=== PATIENT | female | born 1990 | race Caucasian/White ===

== ENCOUNTER 2021-07-06 17:03 | Inpatient (IN) | payer BC, SELFPAY ==
[2021-07-06] VITALS (18 sets, daily range): BP systolic 86–129; BP diastolic 49–89; PULSE 66–103; BMI 25.7
--- NOTE | 2021-07-06 17:25 | LDADM ---
This patient, Kayla Lizarraga, was admitted to Labor/Delivery/Recovery 108 on 07/06/21 at 17:03. Plans for labor, pain management and were discussed with patient. Patient/family oriented to hospital policies and general routines including ID bracelet, bed and alarms, visiting hours, pain management, procedures, bathroom and other care routines, personal items, smoking policy, room service/diet and guest tray routines, security routines, and visiting hours. Patient/Family are encouraged to report perceived risks to care and to ask questions if they do not understand what they are told or what they should do. See OBIX for further documentation.
[2021-07-06] MEDS: DINOPROSTONE 10 MG VAG INSERT VAGINAL (17:43)
[2021-07-06 18:05] LABS: Basophils Percent Auto 0.4 % (0.2-1.2); Eosinophils Percent Auto 0.4 % (0-4.4); Hematocrit 39.4 % (37.0-47.0); Hemoglobin 13.4 g/dL (12.0-15.0); Immature Granulocyte Absolute 0.03 K/mm3 (0.00-0.031); Immature Granulocyte Percent A 0.4 % (0-0.5); Lymphocytes Absolute Auto 1.55 K/mm3 (0.9-3.2); Lymphocytes Percent Auto 18.3 % (18.3-44.2); Mean Corpuscular Hemoglobin 29.5 pg (26-34); Mean Corpuscular Volume 86.8 fl (80-100); Mean Platelet Volume 12.3 fl (7.4-10.4); Monocytes Absolute Auto 0.7 K/mm3 (0.1-0.6); Monocytes Percent Auto 8.2 % (2.6-8.5); Neutrophils Absolute Auto 6.1 K/mm3 (1.3-6.7); Neutrophils Percent Auto 72.3 % (45.5-73.1); Platelet Count Result 158 k/mm3 (150-375); Red Blood Count 4.54 M/mm3 (4.2-5.4); Red Cell Distribution Width 13.2 % (11.5-14.5); White Blood Count 8.5 K/mm3 (4.5-10.0)
--- NOTE | 2021-07-06 18:43 | P.PNAN_ITS ---
Anes - Eval Pre Procedure Procedure: labor epidural Date/Time: 07/06/21 18:43 Surgeon: marilyn Pre Op Diagnosis: IOL Patient Data Age: 30 Gender: F Height: 1.6 m Weight: 66 kg Last Vital Signs Pulse 73 07/06/21 18:31 BP 120/81 07/06/21 18:31 Allergies Allergy/AdvReac Type Severity Reaction Status Date / Time Sulfa (Sulfonamide Allergy Hives Verified 07/06/21 17:33 Antibiotics) Home Medications Medication Instructions Recorded Confirmed Type PNV cmb#95-ferrous fumarate-FA 1 tablet PO DAILY 06/08/21 07/06/21 History [] Laboratory Tests 07/06/21 07/06/21 17:38 17:38 WBC 8.5 K/mm3 K/mm3 (4.5-10.0) RBC 4.54 M/mm3 M/mm3 (4.2-5.4) Hgb 13.4 g/dL g/dL (12.0-15.0) Hct 39.4 % % (37.0-47.0) MCV 86.8 fl fl (80-100) MCH 29.5 pg pg (26-34) MCHC 34.0 g/dl g/dl (32-36) RDW 13.2 % % (11.5-14.5) Plt Count 158 k/mm3 k/mm3 (150-375) MPV 12.3 fl H fl (7.4-10.4) Immature Gran % (Auto) 0.4 % % (0-0.5) Neut % (Auto) 72.3 % % (45.5-73.1) Lymph % (Auto) 18.3 % % (18.3-44.2) [place] % (Auto) 8.2 % % (2.6-8.5) Eos % (Auto) 0.4 % % (0-4.4) Baso % (Auto) 0.4 % % (0.2-1.2) Lymph # (Auto) 1.55 K/mm3 K/mm3 (0.9-3.2) [place] # (Auto) 0.7 K/mm3 H K/mm3 (0.1-0.6) Eos # (Auto) 0.0 K/mm3 K/mm3 (0-0.3) Baso # (Auto) 0.0 K/mm3 K/mm3 (0.0-0.1) Abs Immat Gran (auto) 0.03 K/mm3 K/mm3 (0.00-0.031) Absolute Neuts (auto) 6.1 K/mm3 K/mm3 (1.3-6.7) Absolute Nucleated RBC 0.0 K/mm3 K/mm3 (0.0-0.012) Nucleated RBC % 0.0 % % (0.0-0.2) RPR Pending Patient hx anesthesia problems: none Family hx anesthesia problems: none Results Review: All pre-operative results and documents have been reviewed as part of the pre-operative evaluation. [facility] Family History Family History (Updated 06/08/21 @ 15:42 by Lilibeth Agee RN) Father Hypertension Father Diabetes mellitus Mother High cholesterol Social History Social History Smoking status: Never smoker Substance use: never Spiritual care concerns: No Exam Day of Procedure 07/06/21 18:43
[2021-07-07] VITALS (189 sets, daily range): BP systolic 76–171; BP diastolic 39–141; PULSE 57–157; RESP 16; TEMP 35.8–36.9; O2SAT 97–100
[2021-07-07] MEDS: fentaNYL CITRATE INJ (*CRX) 100 MCG/2 ML VIAL 50 MCG IV PUSH ×2 (02:09→03:45)
[2021-07-07] MEDS: LACTATED RINGERS 1,000 ML 999 ML IV CONT ×3 (05:23→14:38)
[2021-07-07] MEDS: PHENYLEPHRINE 1,000 MCG/10 ML SYRINGE 100 MCG IV PUSH ×2 (05:52→05:59)
--- NOTE | 2021-07-07 08:39 | WPDOBADMIT ---
Obstetrics - Admit Note Admission Note: record reviewed. Additions to the history and/or subsequent changes in the physical findings follow. 30 y/o G1 at 40 2/7 weeks here for induction of labor. GBS neg. Cervidil overnight, has been withdrawn. Now comfortable with epidural. AVSS NST reactive TOCO: irregular contractions ABD soft, nontender, gravid, vertex EXT nontender Cervix 4/50/-2. AROM with clear fluid. IUPC placed. A: IUP at term, desiring induction of labor. P: Oxytocin. Anticipate .
[2021-07-07] MEDS: OXYTOCIN 30 UNITS/NS 500 ML 30 UNITS/500 ML BAG 125 UNITS IV CONT (12:47)
--- NOTE | 2021-07-07 13:00 | PM.OBPNLAB ---
Pain Control Date/time seen: 07/07/21 13:00 Comments: Comfortable with epidural. AVSS NST reactive TOCO: contractions every 3-4 min Cervix 7-8/90/0 Continue labor.
[2021-07-07 13:51] LABS: Rapid Plasma Reagin Non-Reactive (NonReactive)
--- NOTE | 2021-07-07 15:37 | PM.OBPRVD ---
OB - Delivery Note Procedure Delivery date: 07/07/21 Procedure: Induction of labor with Induction method: Per Cervidil Protocol Delivery augmentation: Rupture of Membranes and Pitocin Delivery monitor: External FHT, External Uterine and Internal Uterine Route of delivery: Episiotomy description: Midline Delivery repair: vicryl (3-0) Specimen: Yes (cord blood) Quantitative Blood Loss (ml): 220 Anesthesia type: Epidural Disposition: PACU Complications: None Narrative: 30 y/o G1 at 40 2/7 weeks gestation who presented to the hospital for induction of labor. Cervidil was placed overnight, then withdrawn the next morning. Oxytocin was administered intravenously. Amniotomy was performed with return of clear fluid. She received an epidural for pain control. Her labor progressed and her cervix dilated completely. She pushed with good effort. A midline episiotomy was made and the infant's head delivered to the perineum. A loose nuchal cord was splinted and the body delivered. The nose and mouth were bulb suctioned. After a delay, the cord was clamped and cut. The was handed off the field. Cord blood was collected. The placenta delivered spontaneously and was grossly normal in appearance. The usual 3 vessel cord was noted. The MLE was without extension. This was reapproximated using 3 0 Vicryl in the usual layered fashion. Excellent hemostasis resulted as did excellent reapproximation of the normal anatomy. Needle and instrument counts were correct. The patient was taken to recovery room in stable condition. The infant went to the nursery in stable condition. I was present and scrubbed for the entire delivery. Baby Date of : 07/07/21 Time of : 15:17 Weeks of gestation at delivery: 40 Infant gender: Female Weight (pounds): 7 Weight (ounces): 4 presentation: vertex position: Right Occiput Anterior Placenta delivery description: Spontaneous and Normal Configuration Cord Vessel Description: 3 Vessels, Nuchal Cord and Delayed Cord Clamping score one minute: 5 score five minutes: 8
--- NOTE | 2021-07-07 15:43 | PM.OBDSVD ---
DS: Admitting Diagnosis Discharge Date 07/09/21 Admitting Diagnosis IUP at 40 weeks OB - DS: Summary OB Procedures : None OB Procedures Intrapartum: Spontaneous Vag Delivery OB Procedures: : None Time Spent with Patient Time attestation: Total time spent providing and/or coordinating discharge services: DS: Data Data Completed and Pending Labs on day of discharge: Labs from last 24 hours 07/06/21 07/06/21 07/06/21 17:38 17:38 17:38 WBC 8.5 RBC 4.54 Hgb 13.4 Hct 39.4 MCV 86.8 MCH 29.5 MCHC 34.0 RDW 13.2 Plt Count 158 MPV 12.3 H Immature Gran % (Auto) 0.4 Neut % (Auto) 72.3 Lymph % (Auto) 18.3 [place] % (Auto) 8.2 Eos % (Auto) 0.4 Baso % (Auto) 0.4 Lymph # (Auto) 1.55 [place] # (Auto) 0.7 H Eos # (Auto) 0.0 Baso # (Auto) 0.0 Abs Immat Gran (auto) 0.03 Absolute Neuts (auto) 6.1 Absolute Nucleated RBC 0.0 Nucleated RBC % 0.0 RPR Non-reactive Blood Type A Positive Antibody Screen Negative Discharge Plan Discharge Attending physician on discharge: Kelvin Velásquez Discharging Clinician: Kelvin Velásquez Patient Disposition: Home, Self-Care Activity: pelvic rest Diet: regular Discharge Instructions: Call or return if temperature above 100.4? F, increased abdominal pain, increased vaginal bleeding or any new problems. Stand Alone Forms: General Discharge Information Follow-up/Referrals: Kelvin Velásquez MD [Physician] - 6 Weeks Discharge Medications: New ibuprofen 600 mg tablet 600 mg PO Q6H PRN (Reason: cramps) Qty: 30 0RF Continued PNV cmb#95-ferrous fumarate-FA [] 28 mg iron- 800 mcg Tablet 1 tablet PO DAILY Date of admission: 07/06/21 17:03 Primary Care Provider: Kamilah,Devin Chiang Admitting Provider: Kelvin Velásquez Attending physician on admission: Kelvin Velásquez Condition: Stable
[2021-07-07] MEDS: IBUPROFEN 600 MG TABLET PO ×2 (16:34→23:39)
[2021-07-07] MEDS: BENZOCAINE 20% AER SPR (*SP) 56 GM CAN 1 SPRAY TOPICAL (18:42)
[2021-07-07] MEDS: WITCH HAZEL 40 PADS 1 PAD TOPICAL (18:42)
--- NOTE | 2021-07-07 18:48 | OBPPTRN ---
Patient transferred to post room #291 via wheelchair. Support person present. Oriented to unit, room, information board, rooming in, admission packet and security measures. Patient verbalizes understanding.
[2021-07-08 04:00] VITALS: BP 107/66; PULSE 72; RESP 16; TEMP 36.6; O2SAT 98
[2021-07-08 05:08] LABS: Hematocrit 35.3 % (37.0-47.0); Hemoglobin 11.9 g/dL (12.0-15.0)
--- NOTE | 2021-07-08 06:50 | PC.NURSE ---
PT introductions made and plan of care discussed per post , pain management, breast feeding, daily care activities. PT and spouse both recipients of such care and no barriers to learning identified at this time. PT received instructions per one to one discussion, mom baby care guide and demonstrations this shift. PT verbalized understanding of such care.
[2021-07-08 07:30] VITALS: BP 105/67; PULSE 80; RESP 16; TEMP 36.3; O2SAT 97
--- NOTE | 2021-07-08 08:02 | WPDANLDPN2 ---
Anes-Prog Note L&D Date/Time: 07/08/21 08:02 Comfortable throughout: labor and delivery Neuraxial method: epidural Epidural/Spinal procedure site: clean & non-tender Neuro status: Neuro function grossly intact. Cardiovascular status: normal Respiratory status: normal Airway patency: baseline Mental status: baseline Post-Op hydration status: normal Vital Signs: Last Vital Signs Temp 97.8 F 07/08/21 04:00 Pulse 72 07/08/21 04:00 Resp 16 07/08/21 04:00 BP 107/66 07/08/21 04:00 Pulse Ox 98 07/08/21 04:00 O2 Del Method Room Air 07/07/21 19:00 Pain score (VAS): 10 I/O: Intake & Output 07/07/21 07/08/21 07/08/21 23:59 07:59 15:59 Intake Total 500 Output Total 720 Balance -220 Patient feedback: Patient satisfied with anesthetic care.
[2021-07-08 11:00] VITALS: PULSE 89; RESP 18; O2SAT 99
[2021-07-08] MEDS: POLYSACCHARIDE IRON COMPLEX 150 MG CAPSULE PO (11:12)
[2021-07-08] MEDS: LANOLIN (LANSINOH) 7.5 GM CREAM 1 APPLIC TOPICAL (11:12)
[2021-07-08] MEDS: MULTIVIT/MIN/PREN/FOL AC/IRON TABLET 1 TAB PO (11:13)
[2021-07-08] MEDS: ACETAMINOPHEN 325 MG TABLET 650 MG PO ×2 (11:13→17:40)
[2021-07-08] MEDS: IBUPROFEN 600 MG TABLET PO ×2 (11:14→17:42)
[2021-07-08] MEDS: DOCUSATE SODIUM 100 MG CAPSULE PO ×2 (11:15→17:42)
[2021-07-08 12:28] VITALS: BP 102/65; PULSE 89; RESP 18; TEMP 37.3; O2SAT 99
--- NOTE | 2021-07-08 12:30 | PM.OBPNVD ---
OB - PN: Subj Subjective Date/time seen: 07/08/21 12:30 Narrative: Pain OK. . AVSS ABD soft, nontender, fundus firm EXT nontender A: PPD#1, doing well. P: Routine care. Plan home tomorrow. OB - PN: Obj Data Labs CBC & Chem 7: 07/08/21 04:07 Labs: Laboratory Results - last 24 hr 07/06/21 07/08/21 17:38 04:07 Hgb 11.9 L Hct 35.3 L RPR Non-reactive
--- NOTE | 2021-07-08 15:54 | PC.NURSE ---
[id number] Introductions were made, then consulted with patient to assess needs related to . Mother led the conversation with her experience feeding her so far. Mother works well with her . Encouraged understanding of the benefits of skin to skin (unwrapping and placing vertically on her chest), responsive feeding and how to watch for early feeding signs, frequency of feeding on demand about every 8-12 times in 24 hours (every 2-3 hours), milk production, duration of feeding, signs of adequate intake/output and how to record on the feeding sheet. Reviewed positioning and ear, shoulder, hip alignment, supporting the breast, asymmetrical latch (off-center), and leading with the chin with a big open side gape. Infant attempted to latch optimally to both breast using football and cross cradle position. Infant is not able to optimally latch to mother's breast related to large nipples. Mother states she doens't think has been latching correctly. Father of baby think may have. was unable to maintain latch without discomfort to mother. Nipple shield provided to mother due to ineffective feeding. Reviewed good handwashing, cleaning the nipple shield and application. Discussed with mom the nipple shield precautions, possible complications associated with the risks and benefits. Reviewed practicing with a nipple shield, then without and how to protect the milk supply and production. Mom and baby guide referred to as a resource for using a nipple shield, out-patient services, community resources and when to call a provider. Mom voiced understanding of the importance of hand expression, nipple stimulation and initiating a pumping schedule if continues to nurse with the shield. The nipple shield was used as a tool to contain the nipple in an attempt to train infant to use a wide open gape to gather nipple into the mouth with areola in the front of the mouth. Infant maintains latch with a nipple shield, then pulls back and wants to suck on the tip of the nipple shield. Nipple care reviewed with optimal latch and good positioning. Breast pump provided due to ineffective . Instructions given on cleaning, care, usage, there should be no pain, pumping schedule for milk production, collection, and storage of human milk. Parents are encouraged to record pumping schedule on the feeding sheet. Patient was assessed for correct placement, flange size 27 mm, to pump for comfort and nipple stretching/stimulation for adequate milk production. Mother voiced understanding of the education shared. Reminding mother of comfort measures of healing with a warm and wet washcloth to rinse breast, then leave open to air-dry as needed. Reviewed good handwashing when or touching the breast/nipples to prevent infection. Resources used to facilitate learning were used with the visual handouts/ tool/mom and baby guide. Mother voiced understanding of responsive feedings, stimulating with skin to skin, hand expressed colostrum, touch, talking to to encourage if it has been 2 -3 hours since the start of the last , to call if infant does not latch or there is discomfort with . Reported consult/ nipple shield/ pumping to the primary RN.
[2021-07-08 19:45] VITALS: BP 109/67; PULSE 71; RESP 16; TEMP 36.4; O2SAT 98
--- NOTE | 2021-07-09 08:00 | PC.NURSE ---
Acct Num: [id number] : 1990 Patient Age: 30 PT introductions made and plan of care discussed per post , pain management, breast feeding, daily care activities and pending discharge to home. PT and spouse both recipients of such care and no barriers to learning identified at this time. PT received instructions per one to one discussion, mom baby care guide and demonstrations this shift. PT verbalized understanding of such care
[2021-07-09 08:35] VITALS: BP 118/71; PULSE 88; RESP 20; TEMP 36.6; O2SAT 98
--- NOTE | 2021-07-09 08:36 | PM.OBPNVD ---
OB - PN: Subj Subjective Date/time seen: 07/09/21 08:36 Narrative: Pain OK. Would like to go home. AVSS ABD soft, nontender, fundus firm EXT nontender A: PPD#2, doing well. P: Home to f/u 6 weeks. OB - PN: Obj Data Labs CBC & Chem 7: 07/08/21 04:07
[2021-07-09 10:30] VITALS: PULSE 88; RESP 20; O2SAT 98
[2021-07-09] MEDS: MULTIVIT/MIN/PREN/FOL AC/IRON TABLET 1 TAB PO (10:42)
[2021-07-09] MEDS: IBUPROFEN 600 MG TABLET PO (10:42)
[2021-07-09] MEDS: DOCUSATE SODIUM 100 MG CAPSULE PO (10:43)
[2021-07-09] MEDS: ACETAMINOPHEN 325 MG TABLET 650 MG PO (10:43)
--- NOTE | 2021-07-09 15:58 | PC.NURSE ---
[id number] Consulted with patient to assess needs related to . Mother led conversation with her experience with feeding baby so far. Mother works well with her infant with encouragement. Reviewed working with , breast, nipples and how to protect the nipples with an optimal deep latch, good positioning, and good hand washing. Encouraged understanding the benefits of skin to skin, responding to feeding cues, frequencies of feeding 8-12 times in 24 hours (approximately 2-3 hours), duration of feedings, milk production, intake/output feeding sheet and signs of adequate intake encouraging swallowing at the breast. Reviewed positioning and alignment, supporting breast, off-centered (asymmetrical latch) and leading with the chin with big open wide gape. Infant latched optimally to the right breast in football and another latch with cross cradle position to practice optimal latching with a big wide open gape for a large nipple. and mother have made improvements with latching effectively since yesterday. Education given to mother of how to visualize suck/swallow ratios and drinking at the breast. was able to maintain latch without discomfort to mother. Nipple care reviewed with optimal latch and good positioning, comfort, healing with warm, wet washcloth to rinse breast, then leave open to air-dry, colostrum may be left on nipples to dry but have clean hands when touching the nipple/breast as needed. Resources used to facilitate learning were used from the visual handout/ tool/mom and baby guide. Mother voiced understanding of the education shared, calling for assistance if the infant does not latch or if there is discomfort with . Reported to the primary RN. [id number] Consulted with patient to assess needs related to . Mother led conversation with her experience with feeding baby so far. Mother works well with her infant with encouragement. Reviewed working with , breast, nipples and how to protect the nipples with an optimal deep latch, good positioning, and good hand washing. Encouraged understanding the benefits of skin to skin, responding to feeding cues, frequencies of feeding 8-12 times in 24 hours (approximately 2-3 hours), duration of feedings, milk production, intake/output feeding sheet and signs of adequate intake encouraging swallowing at the breast. Reviewed positioning and alignment, supporting breast, off-centered (asymmetrical latch) and leading with the chin with big open wide gape. latched optimally to the left breast in football position. Education given to mother of how to visualize suck/swallow ratios and drinking at the breast. Infant was able to maintain latch without discomfort to mother. Nipple care reviewed with optimal latch and good positioning, comfort, healing with warm, wet washcloth to rinse breast, then leave open to air-dry, colostrum may be left on nipples to dry but have clean hands when touching the nipple/breast as needed. Parents voiced understanding of the education shared, calling for assistance if the does not latch or if there is discomfort with . Mother is feeding appropriately for growth of and understands stimulating infant to eat if needed. Infant has had appropriate/adequate feedings in the last 24 hours meets the outcomes for weight, output and jaundice at this time. Mother states she is confident to continue effectively her at home or when to call for assistance and denies any additional assistance or education at this time. Reinforced understanding of milk production, transition of milk, signs of adequate intake, prevention/relief of engorgement, responsive after visualizing feeding cues, the different methods of stimulating to breastfeed 2-3 hours after the start of the last feeding, community resources, medication information reviewed per [employer] and when to call a provider using the
--- NOTE | 2021-07-09 17:24 | PC.NURSE ---
PT received discharge instructions per protocol and verbalized understanding of such care.
--- NOTE | 2021-07-09 18:25 | PC.NURSE ---
Pt discharged to home ambulatory accompanied by spouse and and taken to waiting car. Follow up appts confirmed
[2021-07-11 08:35] VITALS: BP 102/68; PULSE 86; RESP 18; TEMP 37; O2SAT 99
== END 2021-07-09 18:25 | disposition home or self-care (01) | DRG 807 ==
LOC: ANHLDR 07-07 15:45 → ANHOB2 07-07 18:53
PROVIDERS: Admitting Provider Obstetrics & Gynecology; PCP Family Medicine; Visit Provider Obstetrics & Gynecology
DX: O69.81X0 Labor and delivery complicated by cord around neck, without compression, not applicable or unspecified (principal); Z37.0 Single live birth; Z3A.40 40 weeks gestation of pregnancy; O36.8330 Maternal care for abnormalities of the fetal heart rate or rhythm, third trimester, not applicable or unspecified
CPT/HCPCS: 36415; 85014; 85018; 85025; 86592; 86850; 86900; 86901; A9270; J2370; J2590; J2795; J3010; J7120

== ENCOUNTER 2023-09-30 07:38 | Outpatient (CLI) | payer BC, SELFPAY ==
[2023-09-30 07:53] VITALS: BP 103/66; PULSE 88
[2023-09-30] MEDS: TERBUTALINE SULFATE 1 MG/ML VIAL (08:40)
--- NOTE | 2023-09-30 08:45 | PC.NURSE ---
Dr. Velásquez at bedside. External version successful. Fetus vertex.
--- NOTE | 2023-09-30 09:09 | WPDOBADMIT ---
Obstetrics - Admit Note Admission Note: 33 y/o at 37 weeks with transverse lie, here for external cephalic version. Rh pos. AVSS NST reactive TOCO: no contractions ABD soft, nontender, gravid EXT nontender Bedside ultrasound exam shows transverse presentation with the head on the maternal left. Procedure: After informed consent was obtained, she was given terbutaline 0.25 mg sc. Under ultrasound guidance, the breech was elevated and the head rotated in a clockwise fashion, settling easily into cephalic presentation. Ultrasound exam showed normal heart rate throughout. The patient tolerated the procedure well. NST performed afterward, and the patient was able to be discharged home.
== END 2023-09-30 10:05 | disposition home or self-care (01) ==
LOC: ANHOBOP 07:41 → ANHOBPP 07:42
PROVIDERS: Visit Provider Obstetrics & Gynecology
DX: O32.2XX0 Maternal care for transverse and oblique lie, not applicable or unspecified (principal); Z3A.37 37 weeks gestation of pregnancy
CPT/HCPCS: 59412; 59025; 96372; 99199; J3105

== ENCOUNTER 2023-10-13 06:34 | Inpatient (IN) | payer BC, SELFPAY ==
[2023-10-13] VITALS (223 sets, daily range): BP systolic 68–130; BP diastolic 52–80; PULSE 72–151; RESP 16–18; TEMP 36.6–37.7; O2SAT 96–100; BMI 25.4
--- NOTE | 2023-10-13 06:59 | LDADM ---
This patient, Kayla Lizarraga, was admitted to Labor/Delivery/Recovery 104 on 10/13/23 at 06:34. Plans for labor, pain management and were discussed with patient. Patient/family oriented to hospital policies and general routines including ID bracelet, bed and alarms, visiting hours, pain management, procedures, bathroom and other care routines, personal items, smoking policy, room service/diet and guest tray routines, security routines, and visiting hours. Patient/Family are encouraged to report perceived risks to care and to ask questions if they do not understand what they are told or what they should do. See OBIX for further documentation.
[2023-10-13 07:15] LABS: Basophils Percent Auto 0.2 % (0.2-1.2); Eosinophils Percent Auto 0.7 % (0-4.4); Hematocrit 39.1 % (37.0-47.0); Hemoglobin 13.7 g/dL (12.0-15.0); Immature Granulocyte Absolute 0.04 K/mm3 (0.00-0.031); Immature Granulocyte Percent A 0.7 % (0-0.5); Immature Platelet Fraction Pct 6.6 % (0.9-11.2); Lymphocytes Absolute Auto 1.23 K/mm3 (0.9-3.2); Lymphocytes Percent Auto 20.2 % (18.3-44.2); Mean Corpuscular Volume 88.5 fl (80-100); Mean Platelet Volume 10.8 fl (7.4-10.4); Monocytes Absolute Auto 0.5 K/mm3 (0.1-0.6); Monocytes Percent Auto 8.7 % (2.6-8.5); Neutrophils Absolute Auto 4.2 K/mm3 (1.3-6.7); Neutrophils Percent Auto 69.5 % (45.5-73.1); Platelet Count Result 148 k/mm3 (150-375); Red Blood Count 4.42 M/mm3 (4.2-5.4); Red Cell Distribution Width 12.8 % (11.5-14.5); White Blood Count 6.1 K/mm3 (4.5-10.0)
[2023-10-13] MEDS: LACTATED RINGERS 1,000 ML 125 ML IV CONT ×3 (08:26→20:09)
[2023-10-13] MEDS: OXYTOCIN 30 UNITS/NS 500 ML 30 UNITS/500 ML BAG IV CONT (08:26)
[2023-10-13 08:27] LABS: HIV 1/2 Ab P24 Ag Result Negative (Negative)
--- NOTE | 2023-10-13 08:45 | WPDOBADMIT ---
Obstetrics - Admit Note Admission Note: record reviewed. Additions to the history and/or subsequent changes in the physical findings follow. 33 y/o at 39 3/7 weeks here for scheduled induction of labor. She had a successful external cephalic version a couple weeks ago. GBS neg. otherwise uncomplicated. AVSS NST reactive TOCO: rare contractions ABD soft, nontender, gravid, vertex EXT nontender Cervix 2/50/-2 AROM with clear fluid. IUPC placed. A: IUP at term with favorable cervix, cephalic presentation. P: Offered induction of labor, and she agrees. Oxytocin. Anticipate .
[2023-10-13 10:48] LABS: Rapid Plasma Reagin Non-Reactive (NonReactive)
--- NOTE | 2023-10-13 12:16 | PM.OBPNLAB ---
Pain Control Date/time seen: 10/13/23 12:16 Comments: Starting to feel a few contractions. Pelvic Exam Dilation (cm): 2 Effacement (%): 50 station: -2 Contractions Contraction frequency: 4 Contraction pattern: Regular Status status: Category l Assessment and Plan Pitocin rate (mU/min): 8 Comments: Continue oxytocin. Anticipate .
--- NOTE | 2023-10-13 14:44 | WPDANESEPP ---
Anes - Eval Pre Procedure Procedure: labor epidural Date/Time: 10/13/23 14:44 Surgeon: marilyn Preop Diagnosis: pain during labor Pre Op Diagnosis: IOL Patient Data Age: 33 Gender: F Height: 1.6 m Weight: 65 kg Last Vital Signs Temp 37.3 C 10/13/23 12:01 Pulse 88 10/13/23 14:15 Resp 16 10/13/23 09:13 BP 110/73 10/13/23 14:15 Pulse Ox 97 10/13/23 14:40 O2 Del Method Room Air 10/13/23 06:58 Allergies Allergy/AdvReac Type Severity Reaction Status Date / Time Sulfa (Sulfonamide Allergy Hives Verified 09/19/23 14:36 Antibiotics) Home Medications Medication Instructions Recorded Confirmed Type vit no.95-ferrous 1 tablet PO DAILY 06/08/21 09/19/23 History fumarate 28 mg-folic acid 800 mcg tablet () Laboratory Tests 10/13/23 06:44 WBC 6.1 K/mm3 (4.5-10.0) RBC 4.42 M/mm3 (4.2-5.4) Hgb 13.7 g/dL (12.0-15.0) Hct 39.1 % (37.0-47.0) MCV 88.5 fl (80-100) MCH 31.0 pg (26-34) MCHC 35.0 g/dl (32-36) RDW 12.8 % (11.5-14.5) Plt Count 148 L k/mm3 (150-375) MPV 10.8 H fl (7.4-10.4) Immature Gran % (Auto) 0.7 H % (0-0.5) Neut % (Auto) 69.5 % (45.5-73.1) Lymph % (Auto) 20.2 % (18.3-44.2) [place] % (Auto) 8.7 H % (2.6-8.5) Eos % (Auto) 0.7 % (0-4.4) Baso % (Auto) 0.2 % (0.2-1.2) Lymph # (Auto) 1.23 K/mm3 (0.9-3.2) [place] # (Auto) 0.5 K/mm3 (0.1-0.6) Eos # (Auto) 0.0 K/mm3 (0-0.3) Baso # (Auto) 0.0 K/mm3 (0.0-0.1) Abs Immat Gran (auto) 0.04 H K/mm3 (0.00-0.031) Absolute Neuts (auto) 4.2 K/mm3 (1.3-6.7) Absolute Nucleated RBC 0.000 K/mm3 (0.0-0.012) Nucleated RBC % 0.0 % (0.0-0.2) % Immature Plt Fraction 6.6 % (0.9-11.2) RPR Non-reactive (NonReactive) HIV 1&2 Ab/P24 Ag 4thGn Negative (Negative) Blood Type A Positive Antibody Screen Negative Patient hx anesthesia problems: none Family hx anesthesia problems: none Results Review: All pre-operative results and documents have been reviewed as part of the pre-operative evaluation. [facility] Past Medical History Medical History (Updated 10/13/23 @ 14:45 by Rohini Kaminski CRNA) IUP (intrauterine ), incidental Family History Family History Father Hypertension Father Diabetes mellitus Mother High cholesterol Grandparent Cerebrovascular accident Social History Social History Smoking status: Never smoker Alcohol intake: never Substance use: never Do You Feel Safe in your Home?: Yes Lack of Transportation: No Lack of Food: Never True Current Housing: I Have Housing Concerned About Future Housing: No Difficulty Paying Gas/Electric Bills: No Difficulty Paying for Meds: No Currently Unemployed: No Education: Master's Degree or Higher Difficulty w/ Childcare or Family Care: No Spiritual care concerns: No Exam Day of Procedure 10/13/23 14:44
--- NOTE | 2023-10-13 16:21 | PM.OBPNLAB ---
Pain Control Date/time seen: 10/13/23 16:21 Comments: Epidural in place. Pelvic Exam Dilation (cm): 4 Effacement (%): 50 station: -2 Comments: Cephalic presentation, but also some fingers felt next to head. Contractions Contraction frequency: 3 Contraction pattern: Regular Status status: Category l Assessment and Plan Comments: Continue labor. Still anticipate .
[2023-10-13] MEDS: SODIUM CHLORIDE 0.9% IV 300 ML 600 ML I-UTERINE (22:10)
[2023-10-14] VITALS (59 sets, daily range): BP systolic 90–130; BP diastolic 50–75; PULSE 78–119; RESP 12–18; TEMP 36.5–37.8; O2SAT 97–100
[2023-10-14] MEDS: ACETAMINOPHEN 500 MG TABLET 1000 MG PO (00:17)
--- NOTE | 2023-10-14 01:04 | PM.OBPRVD ---
OB - Vaginal Delivery Note Procedure Delivery date: 10/14/23 Induction method: Per Pitocin Protocol Delivery augmentation: Rupture of Membranes Delivery monitor: External FHT, External Uterine and Internal Uterine Route of delivery: Episiotomy description: None Laceration Description: Perineal - 2nd Degree and Labial Delivery repair: vicryl (3-0) Specimen: Yes (Cord blood) Quantitative Blood Loss (ml): 440 Anesthesia type: Epidural Disposition: PACU Complications: None Narrative: 33 y/o at 39 4/7 weeks gestation who had undergone a successful external cephalic version at 37 weeks, so induction of labor was offered at 39 weeks. She was admitted to the hospital where cephalic presentation was confirmed. Oxytocin was administered intravenously. Amniotomy was performed with return of clear fluid. She received an epidural for pain control. Her labor progressed and her cervix dilated completely. She pushed with good effort and delivered the 's head to the perineum, followed by the body. The nose and mouth were bulb suctioned. After a delay, the cord was clamped and cut. The was handed off the field. Cord blood was collected. The placenta delivered spontaneously and was grossly normal in appearance. The usual 3 vessel cord was noted. A second degree midline perineal laceration was sustained. This was reapproximated using 3 0 Vicryl in the usual layered fashion. A left sided labial laceration was reapproximated with figure of eight sutures of the same material. Excellent hemostasis resulted as did excellent reapproximation of the normal anatomy. Needle and instrument counts were correct. The patient was taken to recovery room in stable condition. The went to the nursery in stable condition. I was present and scrubbed for the entire delivery. Baby Date of : 10/14/23 Time of : 00:42 Gestational Age by Date: 39 Infant gender: Female presentation: vertex position: Left Occiput Anterior Placenta delivery description: Spontaneous and Normal Configuration Cord Vessel Description: 3 Vessels score one minute: 9 score five minutes: 9
--- NOTE | 2023-10-14 01:08 | PM.OBDSVD ---
DS: Admitting Diagnosis Discharge Date 10/16/23 Admitting Diagnosis IUP at 39 4/7 weeks DS: Discharge Diagnosis Discharge Diagnosis (1) (normal spontaneous vaginal delivery): Code(s): O80 - Encounter for full-term uncomplicated delivery Status: Acute (2) Rubella non-immune status, delivered, current hospitalization: Code(s): O99.892 - Other specified diseases and conditions complicating childbirth; Z28.39 - Other underimmunization status Status: Acute OB - DS: Summary OB Procedures : None OB Procedures Intrapartum: Spontaneous Vag Delivery OB Procedures: : None Peripartum Data Laceration Description: Perineal - 2nd Degree and Labial Episiotomy description: None Time Spent with Patient Time attestation: Total time spent providing and/or coordinating discharge services: DS: Data Data Completed and Pending Labs on day of discharge: Labs from last 24 hours 10/13/23 06:44 WBC 6.1 RBC 4.42 Hgb 13.7 Hct 39.1 MCV 88.5 MCH 31.0 MCHC 35.0 RDW 12.8 Plt Count 148 L MPV 10.8 H Immature Gran % (Auto) 0.7 H Neut % (Auto) 69.5 Lymph % (Auto) 20.2 [place] % (Auto) 8.7 H Eos % (Auto) 0.7 Baso % (Auto) 0.2 Lymph # (Auto) 1.23 [place] # (Auto) 0.5 Eos # (Auto) 0.0 Baso # (Auto) 0.0 Abs Immat Gran (auto) 0.04 H Absolute Neuts (auto) 4.2 Absolute Nucleated RBC 0.000 Nucleated RBC % 0.0 % Immature Plt Fraction 6.6 RPR Non-reactive HIV 1&2 Ab/P24 Ag 4thGn Negative Blood Type A Positive Antibody Screen Negative Discharge Plan Discharge Attending physician on discharge: Kelvin Velásquez Consulting providers: Rosalind Cristobal; Rohini Kaminski; Caroline Thayer Discharging Clinician: Rosalind Cristobal Patient Disposition: Home, Self-Care Activity: pelvic rest Diet: regular Discharge Instructions: Education: Mom and Baby Guide Given to: Mother Follow-Up: Call your delivering provider's office for an appointment to be seen in: 6 Weeks Mom and baby should come to the [facility] for the follow-up appointment. Appointment Date/Time: October 17, 2023 at 8:00 am What to expect at your follow-up visit: Blood Pressure Check Physical Assessment Call [phone] if you are unable to keep your appointment time. BREAST CARE: * Wear a snug supportive bra. * For engorgement discomfort: Breast Feeding: * Apply warm moist washcloths * Express milk as needed to relieve engorgement * Wear loose clothing * For sore nipples: * Identify correct latch-on * Apply warm moist washcloths before and after nursing * Air dry nipples after nursing * May apply Lansin[place] cream to nipples PERINEAL CARE: * Until bleeding stops, use your sudha bottle after urinating * Change your pad frequently throughout the day * You may take sitz baths several times a day (fill your bathtub with warm water and soak for 20 minutes.) Do NOT bathe in the water * No tub baths until seen by your physician - You may shower ACTIVITY: * Rest as much as possible. * Do not exercise or lift anything heavier than your baby (such as laundry or other children.) * Avoid stairs or driving as much as possible. * Do not put anything into the vagina. No douching, tampons, or sexual activity until seen by physician. NOTIFY PHYSICIAN IF YOU HAVE ANY QUESTIONS OR IF ANY OF THE FOLLOWING SYMPTOMS OCCUR: * If your vaginal bleeding becomes foul smelling. * If your vaginal bleeding becomes more heavy than a period or if your bleeding changes from pink to bright red. However, you may pass an occasional walnut-sized clot once or twice for the first week . * If you experience a sharp, shooting pain in your calves. * If you discover a hard, reddened area on your breast or if you experience flu-like symptoms. DIET: * Eat regular, well-balanced meals. * Drink plenty of fluids daily. If , drink
[2023-10-14] MEDS: OXYTOCIN 30 UNITS/NS 500 ML 30 UNITS/500 ML BAG 125 UNITS IV CONT (01:15)
[2023-10-14] MEDS: WITCH HAZEL 40 PADS 1 PAD TOPICAL (03:11)
[2023-10-14] MEDS: BENZOCAINE 20% AER SPR (*SP) 56 GM CAN 1 SPRAY TOPICAL (03:11)
--- NOTE | 2023-10-14 03:32 | OBPPTRN ---
Patient transferred to post room #281 via wheelchair @ [id number]. Support person present. Oriented to unit, room, information board, rooming in, admission packet and security measures. Patient verbalizes understanding.
--- NOTE | 2023-10-14 07:35 | PC.NURSE ---
Consulted with patient to assess needs related to . Discussed with mother her successes, concerns and any questions she has. Encouraged understanding the benefits of skin to skin, responding to feeding cues, frequencies of feeding 8-12 times in 24 hours (approximately 2-3 hours), duration of feedings. Reviewed positioning and alignment. Infant latched optimally to the [right] breast in [cross cradle] position. The infant was [able] to maintain latch without discomfort to mother. We discussed sleepy feedings in the first 24 hours and cluster feeding that often occurs on night 2. Mother voiced understanding of the education shared, to call for assistance if the does not latch or if there is discomfort with . Reported to the Primary RN.
[2023-10-14] MEDS: ACETAMINOPHEN 325 MG TABLET 650 MG PO (09:28)
[2023-10-14] MEDS: MULTIVIT/MIN/PREN/FOL AC/IRON TABLET 1 TAB PO (09:28)
[2023-10-14] MEDS: DOCUSATE SODIUM 100 MG CAPSULE PO ×2 (09:28→17:24)
--- NOTE | 2023-10-14 13:12 | PC.NURSE ---
Introductions made, communication board updated. Mother states that she feels confident infant and denies pain with latch. This RN requested that mother call for next feeding so latch can be observed, mother understands and will call this RN with next feed. Mother denies any additional questions at this time.
--- NOTE | 2023-10-14 16:05 | PC.NURSE ---
This RN called to room to observe feeding. Mother latches infant appropriately and is confident in doing so. Infant is actively feeding on the left breast in cross cradle position. No pain noted. Mother understands that she can call with any questions or concerns.
[2023-10-15 04:05] VITALS: BP 102/58; PULSE 83; RESP 12; TEMP 36.5; O2SAT 99
[2023-10-15 04:59] LABS: Hematocrit 34.6 % (37.0-47.0); Hemoglobin 11.6 g/dL (12.0-15.0)
[2023-10-15 07:40] VITALS: BP 96/63; PULSE 71; RESP 16; TEMP 36.4; O2SAT 98
[2023-10-15] MEDS: ACETAMINOPHEN 325 MG TABLET 650 MG PO (07:44)
[2023-10-15] MEDS: DOCUSATE SODIUM 100 MG CAPSULE PO ×2 (07:44→15:46)
[2023-10-15] MEDS: MULTIVIT/MIN/PREN/FOL AC/IRON TABLET 1 TAB PO (07:45)
--- NOTE | 2023-10-15 09:42 | P.PNOB_ITS ---
OB - PN: Subj Subjective Date/time seen: 10/15/23 0845 Interval history: Doing well. Urinating without difficulty. Denies passing any large clots. Denies dizziness with ambulating. Tolerating po food and fluids. Bonding with infant. Patient comments: pain well controlled [place] baby status: nursing well OB - PN: Obj Data Labs 10/15/23 03:18 Labs: Laboratory Results - last 24 hr 10/15/23 03:18 Hgb 11.6 L Hct 34.6 L OB - PN A/P Assessment and Plan (1) (normal spontaneous vaginal delivery): Code(s): O80 - Encounter for full-term uncomplicated delivery Status: Acute (2) Mother currently breastfeeds: Status: Acute (3) Rubella non-immune status, delivered, current hospitalization: Code(s): O99.892 - Other specified diseases and conditions complicating childbirth; Z28.39 - Other underimmunization status Status: Acute Assessment and Plan: Plan MMR prior to DC home. Plan day: 1 Plan: routine care Time Spent With Patient Time: Total time spent is greater than 50% in coordination of care (as documented) at patient's floor/unit and/or counseling patient: Review of Systems Review of Systems: All systems reviewed & are unremarkable except as noted in HPI and below Exam Narrative: Alert and oriented. Mood is pleasant and cooperative. Perineum with minimal edema. Fundus firm and below umbilicus. Const: General: cooperative, healthy appearing, no acute distress and alert Orientation/consciousness: patient oriented x3 Limitations: no limitations Resp: Effort & Inspection: normal respiratory effort and able to speak in complete sentences Auscultation: clear to auscultation bilaterally Cardio: Rate: regular rate GI: Inspection: normal to inspection Auscultation: normal bowel sounds : General: Yes bladder normal to palpation External Female Exam: other (lochia WNL) Bimanual exam- vagina & uterus: bladder normal to palpation Other: Fundus firm and below U Skin: General skin exam: normal color and no rashes or lesions noted Neuro: General: patient oriented x3 and moves all extremities Cognition (Neuro): normal cognition Extrem: General: normal to inspection and no calf tenderness Psych: Appearance: grossly normal Mental Status: mental status grossly normal Affect: normal affect Thought process: Normal thought process present
--- NOTE | 2023-10-15 10:27 | WPDANLDPN2 ---
Anes-Prog Note L&D Date/Time: 10/15/23 10:27 Comfortable throughout: labor and delivery Neuraxial method: epidural Epidural/Spinal procedure site: clean & non-tender Neuro status: Neuro function grossly intact. Cardiovascular status: normal Respiratory status: normal Airway patency: baseline Mental status: baseline Post-Op hydration status: normal Vital Signs: Last Vital Signs Temp 97.5 F L 10/15/23 07:40 Pulse 71 10/15/23 07:40 Resp 16 10/15/23 07:40 BP 96/63 L 10/15/23 07:40 Pulse Ox 98 10/15/23 07:40 O2 Del Method Room Air 10/15/23 07:45 Pain score (VAS): 0 I/O: Intake & Output 10/14/23 10/15/23 10/15/23 23:59 07:59 15:59 Intake Total 500 Balance 500 Post-procedural complaints: none Patient feedback: Patient satisfied with anesthetic care.
--- NOTE | 2023-10-15 11:15 | PC.NURSE ---
This RN called to bedside to observe latch. Mother wanted to assure that her latch looked appropriate. Infant is latched to the right breast in cross cradle position nursing well. Mother denies pain.
[2023-10-15] MEDS: IBUPROFEN 600 MG TABLET PO (15:46)
[2023-10-15 19:00] VITALS: BP 92/58; PULSE 82; RESP 18; TEMP 36.6
[2023-10-16] MEDS: IBUPROFEN 600 MG TABLET PO (04:55)
[2023-10-16 07:13] VITALS: BP 92/55; PULSE 74; RESP 18; TEMP 36.7; O2SAT 99
[2023-10-16] MEDS: MULTIVIT/MIN/PREN/FOL AC/IRON TABLET 1 TAB PO (08:28)
[2023-10-16] MEDS: DOCUSATE SODIUM 100 MG CAPSULE PO (08:29)
[2023-10-16] MEDS: MEASLES,MUMPS,RUBELLA VACCINE 0.5 ML VIAL SUB-Q (08:29)
--- NOTE | 2023-10-16 11:54 | P.PNOB_ITS ---
OB - PN: Subj Subjective Date/time seen: 10/16/23 11:40 Interval history: Doing well. Urinating without difficulty. Denies passing any large clots. Denies dizziness with ambulating. Tolerating po food and fluids. Bonding with . Infant well. Patient comments: pain well controlled [place] baby status: nursing well feeding status: exclusively breast feeding OB - PN: Obj Data Labs 10/15/23 03:18 OB - PN A/P Assessment and Plan (1) Rubella non-immune status, delivered, current hospitalization: Code(s): O99.892 - Other specified diseases and conditions complicating childbirth; Z2 8.39 - Other underimmunization status Status: Acute Assessment and Plan: Plan MMR prior to DC (2) Mother currently breastfeeds: Status: Acute (3) (normal spontaneous vaginal delivery): Code(s): O80 - Encounter for full-term uncomplicated delivery Status: Acute Plan day: 2 Plan: discharge home Time Spent With Patient Time: Total time spent is greater than 50% in coordination of care (as documented) at patient's floor/unit and/or counseling patient: Review of Systems Review of Systems: All systems reviewed & are unremarkable except as noted in HPI and below Exam Narrative: Alert and oriented. Mood is pleasant and cooperative. Perineum with minimal edema. Fundus firm and below umbilicus. Const: General: cooperative, healthy appearing, no acute distress and alert Orientation/consciousness: patient oriented x3 Limitations: no limitations Resp: Effort & Inspection: normal respiratory effort and able to speak in complete sentences Auscultation: clear to auscultation bilaterally Cardio: Rate: regular rate GI: Inspection: normal to inspection Auscultation: normal bowel sounds : General: Yes bladder normal to palpation External Female Exam: other (lochia WNL) Bimanual exam- vagina & uterus: bladder normal to palpation Other: Fundus firm and below U Skin: General skin exam: normal color and no rashes or lesions noted Neuro: General: patient oriented x3 and moves all extremities Cognition (Neuro): normal cognition Extrem: General: normal to inspection and no calf tenderness Psych: Appearance: grossly normal Mental Status: mental status grossly norm al Affect: normal affect Thought process: Normal thought process present
[2023-10-17 08:26] VITALS: BP 97/65; PULSE 96; RESP 18; TEMP 36.8; O2SAT 98
== END 2023-10-16 12:50 | disposition home or self-care (01) | DRG 807 ==
LOC: ANHLDR 10-14 01:09 → ANHOB2 10-14 03:36
PROVIDERS: Admitting Provider Obstetrics & Gynecology; Visit Provider Obstetrics & Gynecology
DX: O70.1 Second degree perineal laceration during delivery (principal); Z37.0 Single live birth; Z3A.39 39 weeks gestation of pregnancy; Z28.39 Other underimmunization status
CPT/HCPCS: 36415; 85014; 85018; 85025; 85055; 86592; 86703; 86850; 86900; 86901; 90710; A9270; G0432; J2590; J2795; J7030; J7120